=== PATIENT | male | born 1945 | race Caucasian/White ===

== ENCOUNTER 2017-03-10 08:36 | Inpatient (IN) | payer MEDICARE ==
[~2017-03-10] VITALS: Ht 188 cm; Wt 79.9 kg
[2017-03-10] MEDS ORDERED: SODIUM CHLORIDE 0.9% 1,000 ML IV ONE (09:04)
[2017-03-10] MEDS ORDERED: PANTOPRAZOLE 80 MG in SODIUM CHLORIDE 0.9% 50 ML IVPB ONE (09:04)
[2017-03-10] MEDS ORDERED: PANTOPRAZOLE 80 MG in SODIUM CHLORIDE 0.9% 100 ML IV SCH (09:04)
[2017-03-10] MEDS ORDERED: OCTREOTIDE 500 MCG in SODIUM CHLORIDE 0.9% 249 ML IV PRN (09:04)
[2017-03-10] MEDS ORDERED: OCTREOTIDE 100MCG/ML, 1ML (0.1MG/ML) ONE (09:24)
[2017-03-10] MEDS ORDERED: OCTREOTIDE 100MCG/ML, 1ML (0.1MG/ML) IV ONE (09:30)
[2017-03-10] MEDS ORDERED: ONDANSETRON 2MG/ML, 2ML IVPush ONE (09:30)
[2017-03-10] MEDS ORDERED: SODIUM CHLORIDE FLUSH 10ML SYR IVF ONE (09:30)
[2017-03-10] MEDS ORDERED: SODIUM CHLORIDE 0.9% 1,000ML IVBOLUS ONE (09:30)
[2017-03-10 09:52] LABS: ASPARTATE AMINO TRANSFERASE 52 U/L (15-37); BLOOD UREA NITROGEN 20 mg/dL (7-18)
[2017-03-10 09:55] LABS: IS PT STATUS REG ER OR PRE ER? YES
[2017-03-10] MEDS ORDERED: LORazepam 2 MG/ML, 1ML IVPush ONE (10:30)
[2017-03-10] MEDS ORDERED: THIAMINE 100 MG/ML, 2ML IM SCH (10:30)
[2017-03-10] MEDS ORDERED: TRAZ100T15 PO (10:38)
[2017-03-10] MEDS ORDERED: CHOL10002 PO (10:38)
[2017-03-10] MEDS ORDERED: FOLI-17 PO (10:38)
[2017-03-10] MEDS ORDERED: SERT100T5 PO (10:38)
[2017-03-10] MEDS ORDERED: HYDR25TA11 PO (10:38)
[2017-03-10] MEDS ORDERED: MELA1TAB22 PO (10:38)
[2017-03-10] MEDS ORDERED: THIAMINE 100 MG/ML, 2ML ONE (10:58)
[2017-03-10] MEDS: OCTREOTIDE 500 MCG in SODIUM CHLORIDE 0.9% 249 ML IV SCH ×2 (11:00→21:53)
[2017-03-10] MEDS ORDERED: LORazepam 2 MG/ML, 1ML IVPush PRN (11:00)
[2017-03-10] MEDS ORDERED: ONDANSETRON 2MG/ML, 2ML IVPush PRN (11:00)
[2017-03-10] MEDS ORDERED: HYDROcodone/APAP 5/325 TABLET PO PRN (11:00)
[2017-03-10] MEDS: CHOLECALCIFEROL 1,000 UNIT TABLET PO SCH (11:00)
[2017-03-10] MEDS ORDERED: morphine SULFATE 10 MG/ML, 1ML IVPush PRN (11:00)
[2017-03-10] MEDS: PANTOPRAZOLE 80 MG in SODIUM CHLORIDE 0.9% 100 ML IV SCH ×2 (11:00→19:42)
[2017-03-10] MEDS ORDERED: ONDANSETRON 2MG/ML, 2ML ONE (11:49)
[2017-03-10 11:55] LABS: HIV 1&2 ANTIBODY SCREEN Nonreactive (Nonreactive); HIV-1 p24 ANTIGEN Nonreactive (Nonreactive)
[2017-03-10 14:09] VITALS: BP 138/83
[2017-03-10] MEDS: NS + 20MEQ KCL 1,000 ML IV SCH (14:40)
[2017-03-10 19:50] VITALS: BP 150/81
[2017-03-10] MEDS: TRAZODONE 100MG TABLET PO SCH (21:53)
[2017-03-11] MEDS: NS + 20MEQ KCL 1,000 ML IV SCH ×3 (00:14→17:27)
[2017-03-11 04:08] VITALS: BP 145/78
[2017-03-11 06:11] LABS: BLOOD UREA NITROGEN 11 mg/dL (7-18)
[2017-03-11] MEDS: PANTOPRAZOLE 80 MG in SODIUM CHLORIDE 0.9% 100 ML IV SCH ×2 (06:23→16:38)
[2017-03-11 08:00] VITALS: BP 159/81
[2017-03-11] MEDS: OCTREOTIDE 500 MCG in SODIUM CHLORIDE 0.9% 249 ML IV SCH (09:30)
[2017-03-11] MEDS: CHOLECALCIFEROL 1,000 UNIT TABLET PO SCH (09:31)
[2017-03-11] MEDS: FOLIC ACID 1 MG TABLET PO SCH (09:31)
[2017-03-11] MEDS: SERTRALINE 100MG TABLET PO SCH (09:31)
[2017-03-11] MEDS ORDERED: MIDAZOLAM 1 MG/ML, 5ML ONE (11:27)
[2017-03-11] MEDS ORDERED: FENTANYL PF 100 MCG/2ML ONE (11:27)
[2017-03-11 14:00] VITALS: BP 160/85
[2017-03-11 19:54] VITALS: BP 141/85
[2017-03-11] MEDS: TRAZODONE 100MG TABLET PO SCH (21:06)
[2017-03-11] MEDS: OMEPRAZOLE 20 MG CAPSULE.DR PO SCH (21:06)
[2017-03-12] MEDS: NS + 20MEQ KCL 1,000 ML IV SCH ×2 (01:29→08:00)
[2017-03-12 01:43] VITALS: BP 129/74
[2017-03-12] MEDS: PANTOPRAZOLE 80 MG in SODIUM CHLORIDE 0.9% 100 ML IV SCH (03:16)
[2017-03-12 07:46] VITALS: BP 160/89
[2017-03-12] MEDS ORDERED: OMEP-110 PO (09:27)
[2017-03-12] MEDS: FOLIC ACID 1 MG TABLET PO SCH (09:49)
[2017-03-12] MEDS: OMEPRAZOLE 20 MG CAPSULE.DR PO SCH (09:49)
[2017-03-12] MEDS: CHOLECALCIFEROL 1,000 UNIT TABLET PO SCH (09:49)
[2017-03-12] MEDS: SERTRALINE 100MG TABLET PO SCH (09:49)
[2017-03-12 12:14] VITALS: BP 153/85
== END 2017-03-12 14:23 | disposition home or self-care (01) | DRG 381 ==
LOC: ED 10:06 → EDIP 10:13 → 4WST 13:08 → DCLOUNGE 03-12 13:20
PROVIDERS: ADMIT Internal Medicine; ATTEND Internal Medicine
PROC: 0DB58ZX Excision of Esophagus, Via Natural or Artificial Opening Endoscopic, Diagnostic (ICD-10-PCS; principal; 2017-03-10)
PROC: 0DB78ZX Excision of Stomach, Pylorus, Via Natural or Artificial Opening Endoscopic, Diagnostic (ICD-10-PCS; 2017-03-10)
DX: K22.70 Barrett's esophagus without dysplasia (principal); S42.302K Unspecified fracture of shaft of humerus, left arm, subsequent encounter for fracture with nonunion; I85.01 Esophageal varices with bleeding; K92.1 Melena; K92.0 Hematemesis; E87.6 Hypokalemia; F10.20 Alcohol dependence, uncomplicated; F32.9 Major depressive disorder, single episode, unspecified; F43.10 Post-traumatic stress disorder, unspecified; K21.0 Gastro-esophageal reflux disease with esophagitis; K29.70 Gastritis, unspecified, without bleeding; K44.9 Diaphragmatic hernia without obstruction or gangrene; K70.30 Alcoholic cirrhosis of liver without ascites; W19.XXXA Unspecified fall, initial encounter; K80.20 Calculus of gallbladder without cholecystitis without obstruction; Z85.820 Personal history of malignant melanoma of skin; Z59.0 Homelessness; Z81.1 Family history of alcohol abuse and dependence; Z87.11 Personal history of peptic ulcer disease; Z91.81 History of falling; Y93.89 Activity, other specified; Y92.89 Other specified places as the place of occurrence of the external cause; Y99.8 Other external cause status; Z89.511 Acquired absence of right leg below knee
CPT/HCPCS: 36415; 70450; 80048; 80053; 80307; 82140; 83605; 83690; 84484; 85014; 85018; 85025; 85610; 85730; 86703; 86850; 86900; 87899; 88305; 88313; 93005; 96365; 96366; 96372; 96375; 99152; 99153; J2250; J2354; J2405; J3010; J3411; J3480; C9113; G0435; J7030; J7050

== ENCOUNTER 2017-04-01 20:16 | Emergency (ER) | payer MEDICARE ==
[~2017-04-01] VITALS: Ht 188 cm; Wt 84.0 kg
[~2017-04-01 20:16] MED LIST: CHOL10002 PO; FOLI-17 PO; HYDR25TA11 PO; MELA1TAB22 PO; OMEP-110 PO; SERT100T5 PO; TRAZ100T15 PO
[2017-04-01] MEDS ORDERED: OXYC20TA2 PO (20:53)
[2017-04-01] MEDS ORDERED: MORPHINE SULFATE 4 MG/ML, 1ML IVPush PRN (22:00)
[2017-04-01] MEDS ORDERED: SODIUM CHLORIDE 0.9% 1,000ML IVBOLUS ONE (22:00)
[2017-04-01] MEDS ORDERED: ONDANSETRON 2MG/ML, 2ML IVPush ONE (22:00)
[2017-04-01 22:30] LABS: ASPARTATE AMINO TRANSFERASE 39 U/L (15-37); BLOOD UREA NITROGEN 3 mg/dL (7-18)
[2017-04-01 22:35] LABS: IS PT STATUS REG ER OR PRE ER? YES
[2017-04-01] MEDS ORDERED: MORPHINE SULFATE 4 MG/ML, 1ML ONE (22:42)
[2017-04-01] MEDS ORDERED: ONDANSETRON 2MG/ML, 2ML ONE (22:42)
[2017-04-01] MEDS ORDERED: OMNIPAQUE 350 MG/ML, 100ML BOTTLE ONE (23:12)
[2017-04-02 01:49] VITALS: BP 116/73
== END 2017-04-02 01:52 | disposition home or self-care (01) ==
LOC: ED 23:59
DX: K29.20 Alcoholic gastritis without bleeding (principal); K70.30 Alcoholic cirrhosis of liver without ascites; R10.12 Left upper quadrant pain; F10.10 Alcohol abuse, uncomplicated; Z72.89 Other problems related to lifestyle
CPT/HCPCS: 36415; 71010; 74177; 80053; 81003; 83690; 84484; 85025; 85610; 96361; 96374; 96375; 99285; J2405; J7030; Q9967

== ENCOUNTER 2018-06-26 10:04 | Emergency (ER) | payer SELFPAY ==
[~2018-06-26] VITALS: Ht 188 cm; Wt 78.0 kg
[~2018-06-26 10:04] MED LIST changes: +OXYC20TA2 PO; +TRAZ-137 PO; -TRAZ100T15 PO
[2018-06-26] MEDS ORDERED: OXYcodone/APAP 5/325MG TABLET PO ONE (10:30)
[2018-06-26] MEDS ORDERED: HYDROcodone/APAP 5/325 TABLET ONE (10:34)
[2018-06-26] MEDS ORDERED: OXYcodone/APAP 5/325MG TABLET ONE (10:44)
[2018-06-26 10:56] LABS: BASOPHILS # (AUTO) 0.02 x10^3/uL (0-0.1); BASOPHILS % (AUTO) 0 % (0-1); EOSINOPHILS # (AUTO) 0.03 x10^3/uL (0-0.4); EOSINOPHILS % (AUTO) 0 % (1-7); LYMPHOCYTES # (AUTO) 1.12 x10^3/uL (1-3.4); LYMPHOCYTES % (AUTO) 12 % (22-44); MD NO; MEAN CORPUSCULAR HEMOGLOBIN 27.7 pg (27.5-34.5); MEAN CORPUSCULAR HGB CONC 33.9 g/dL (33.2-36.2); MEAN CORPUSCULAR VOLUME 81.6 fL (81-97); MEAN PLATELET VOLUME 9.2 fL (7.4-10.4); MONOCYTES % (AUTO) 7 % (2-9); NEUTROPHILS # (AUTO) 7.67 x10^3/uL (1.8-6.8); NEUTROPHILS % (AUTO) 80 % (42-75); PLATELET COUNT 209 x10^3/uL (130-400); RED BLOOD COUNT 4.68 x10^6/uL (4.38-5.82); RED CELL DISTRIBUTION WIDTH 14.3 % (9.4-14.8)
[2018-06-26 11:09] LABS: ALBUMIN 3.2 g/dL (3.4-5.0); ANION GAP 14 mmol/L (5-15); CHLORIDE 102 mmol/L (98-107)
[2018-06-26 11:13] LABS: ALANINE AMINOTRANSFERASE 19 U/L (12-78); ALKALINE PHOSPHATASE 86 U/L (45-117); BILIRUBIN,TOTAL 1.1 mg/dL (0.2-1.0); CREATININE 0.94 mg/dL (0.7-1.3)
[2018-06-26 13:05] VITALS: BP 118/68
== END 2018-06-26 13:07 | disposition home or self-care (01) ==
LOC: ED 10:57
DX: K70.30 Alcoholic cirrhosis of liver without ascites (principal); F10.10 Alcohol abuse, uncomplicated
CPT/HCPCS: 36415; 76700; 80053; 83690; 85025; 99285

== ENCOUNTER 2018-07-07 10:26 | Emergency (ER) | payer MEDICAID, MEDICARE, OTHER ==
[~2018-07-07] VITALS: Ht 188 cm; Wt 79.5 kg
[2018-07-07] MEDS ORDERED: SODIUM CHLORIDE 0.9% 1,000ML IVBOLUS ONE (11:00)
[2018-07-07] MEDS ORDERED: SODIUM CHLORIDE FLUSH 10ML SYR IVF ONE (11:00)
[2018-07-07 11:31] LABS: BASOPHILS % (AUTO) 0 % (0-1); EOSINOPHILS # (AUTO) 0.12 x10^3/uL (0-0.4); EOSINOPHILS % (AUTO) 2 % (1-7); LYMPHOCYTES # (AUTO) 0.32 x10^3/uL (1-3.4); LYMPHOCYTES % (AUTO) 6 % (22-44); MD NO; MEAN CORPUSCULAR HEMOGLOBIN 27.8 pg (27.5-34.5); MEAN CORPUSCULAR HGB CONC 33.5 g/dL (33.2-36.2); MEAN PLATELET VOLUME 9.9 fL (7.4-10.4); MONOCYTES # (AUTO) 0.41 x10^3/uL (0.2-0.8); MONOCYTES % (AUTO) 8 % (2-9); NEUTROPHILS # (AUTO) 4.63 x10^3/uL (1.8-6.8); NEUTROPHILS % (AUTO) 84 % (42-75); PLATELET COUNT 152 x10^3/uL (130-400); RED BLOOD COUNT 5.07 x10^6/uL (4.38-5.82); RED CELL DISTRIBUTION WIDTH 15.4 % (9.4-14.8)
[2018-07-07 11:41] LABS: ALANINE AMINOTRANSFERASE 21 U/L (12-78); ALBUMIN 3.1 g/dL (3.4-5.0); ANION GAP 5 mmol/L (5-15); CALCIUM 9.2 mg/dL (8.5-10.1); CHLORIDE 106 mmol/L (98-107); CREATININE 0.94 mg/dL (0.7-1.3)
[2018-07-07 11:43] LABS: ALKALINE PHOSPHATASE 85 U/L (45-117); BILIRUBIN,TOTAL 0.5 mg/dL (0.2-1.0); TOTAL PROTEIN 7.5 g/dL (6.4-8.2)
[2018-07-07] MEDS ORDERED: OMNIPAQUE 350 MG/ML, 100ML BOTTLE ONE (12:18)
[2018-07-07] MEDS ORDERED: KETO30SY IM (12:44)
[2018-07-07] MEDS ORDERED: MELO7.5T31 PO (12:48)
[2018-07-07] MEDS ORDERED: BACL-19 PO (12:48)
[2018-07-07] MEDS ORDERED: DOXY100T PO (12:48)
[2018-07-07] MEDS ORDERED: SERT100T PO (12:48)
[2018-07-07 14:32] VITALS: BP 115/72
== END 2018-07-07 14:18 | disposition home or self-care (01) ==
LOC: ED 11:30
DX: R04.2 Hemoptysis (principal); R10.31 Right lower quadrant pain; F32.9 Major depressive disorder, single episode, unspecified; R11.2 Nausea with vomiting, unspecified
CPT/HCPCS: 36415; 71275; 80053; 85025; 96360; 96361; 99285; J7030; Q9967

== ENCOUNTER 2019-10-30 19:33 | Emergency (ER) | payer MEDICARE ==
[~2019-10-30 19:33] MED LIST changes: +BACL-19 PO; +DOXY100T PO; +GABA600T7 PO; +HYDR-826 PO; -HYDR25TA11 PO; +KETO30SY IM; +LISI5TAB7 PO; +MELO7.5T31 PO; +MIRT30TA4 PO; +SERT100T PO; +SERT100T32 PO; -SERT100T5 PO; +THIA100T67 PO; -TRAZ-137 PO; +TRAZ-175 PO
--- NOTE | 2019-10-30 19:56 | NUR ---
PT TO CT
[2019-10-30 20:28] LABS: BASOPHILS # (AUTO) 0.03 x10^3/uL (0-0.1); BASOPHILS % (AUTO) 0 % (0-1); EOSINOPHILS # (AUTO) 0.17 x10^3/uL (0-0.4); EOSINOPHILS % (AUTO) 3 % (1-7); LYMPHOCYTES # (AUTO) 1.02 x10^3/uL (1-3.4); LYMPHOCYTES % (AUTO) 15 % (22-44); MD NO; MEAN CORPUSCULAR HEMOGLOBIN 31.3 pg (27.5-34.5); MEAN CORPUSCULAR HGB CONC 33.3 g/dL (33.2-36.2); MEAN CORPUSCULAR VOLUME 93.8 fL (81-97); MEAN PLATELET VOLUME 8.8 fL (7.4-10.4); MONOCYTES # (AUTO) 0.77 x10^3/uL (0.2-0.8); MONOCYTES % (AUTO) 11 % (2-9); NEUTROPHILS # (AUTO) 4.83 x10^3/uL (1.8-6.8); NEUTROPHILS % (AUTO) 71 % (42-75); PLATELET COUNT 216 x10^3/uL (130-400); RED BLOOD COUNT 3.84 x10^6/uL (4.38-5.82); RED CELL DISTRIBUTION WIDTH 14.7 % (9.4-14.8)
--- NOTE | 2019-10-30 20:31 | NUR ---
PT RESTING ON [employer] WATCHING TV, MONITORS IN PLACE, SIDERAILS UP X2, CALL LIGHT WITHIN REACH. URINE SAMPLE TAKEN TO LAB, AWAITING LAB RESULTS
[2019-10-30 20:33] LABS: ALANINE AMINOTRANSFERASE 48 U/L (12-78); ALBUMIN 2.5 g/dL (3.4-5.0); ANION GAP 6 mmol/L (5-15); CALCIUM 8.5 mg/dL (8.5-10.1); CHLORIDE 111 mmol/L (98-107); CREATININE 0.89 mg/dL (0.7-1.3)
[2019-10-30 20:36] LABS: ALKALINE PHOSPHATASE 91 U/L (45-117); BILIRUBIN,TOTAL 0.3 mg/dL (0.2-1.0); TOTAL PROTEIN 6.5 g/dL (6.4-8.2)
[2019-10-30 20:44] LABS: MICROSCOPIC INDICATED
[2019-10-30 20:51] LABS: AMPHETAMINE SCREEN, URINE Negative (Negative); BARBITURATE SCREEN, URINE Negative (Negative); BENZODIAZEPINE SCREEN, URINE Negative (Negative); CANNABINOID SCREEN, URINE Negative (Negative); COCAINE SCREEN, URINE Negative (Negative); METHADONE SCREEN, URINE Negative (Negative); OPIATE SCREEN, URINE Negative (Negative)
--- NOTE | 2019-10-30 20:58 | NUR ---
PT RESTING CALMLY WATCHING TV, A&OX3, REORIENTED PT TO EVENT, CALL LIGHT WITHIN REACH. AWAITING URINE RESULT Addendum: 10/30/19 at 2101 by BRIDGETTE PT STATED THAT HE DOES NOT TAKE ANY HOME MEDICATIONS WHEN THIS RN REVIEWED HIS MED REC H/X WITH HIM.
[2019-10-30 21:18] LABS: CULTURE INDICATED? NO
--- NOTE | 2019-10-30 22:11 | NUR ---
this rn called [facility] to update on pt status and informed that mauro castro will call me back in 10 mins
--- NOTE | 2019-10-30 22:16 | NUR ---
gloria on telephone stated " it's ok to send pt back to [facility]", will update erp
[2019-10-30 22:29] VITALS: BP 108/64
--- NOTE | 2019-10-30 22:30 | NUR ---
pt resting with eyes closed, nad, respirations even and unlabored, monitors in place, siderails up x2, call light within reach. awaiting transfer back to [facility]
== END 2019-10-30 23:09 | disposition home or self-care (01) ==
LOC: ED 22:17
DX: G31.2 Degeneration of nervous system due to alcohol (principal); I49.3 Ventricular premature depolarization; I10 Essential (primary) hypertension; K21.9 Gastro-esophageal reflux disease without esophagitis
CPT/HCPCS: 36415; 70450; 80053; 80307; 81001; 82140; 85025; 93005; 99284